=== PATIENT | female | born 1940 | race Two or more races ===

== ENCOUNTER 2022-12-07 11:58 | Emergency (ER) | payer MEDICARE, SELFPAY ==
[2022-12-07 12:05] VITALS: BP 182/108; PULSE 117; RESP 18; TEMP 36.5; O2SAT 98; BMI 21.4
--- NOTE | 2022-12-07 12:26 | ED_ITS ---
HPI - General Adult General Chief complaint: Skin/Abscess/Foreign Body Stated complaint: LOWER EXTREMITY PAIN RIGHT SIDE Time Seen by Provider: 12/07/22 12:14 History of Present Illness HPI narrative: patient diagnosed with shingles about 18 days ago. She was started on acyclovir five times per day for one week. She completed the prescription and still has pain from the right buttock down the right thigh. She has a scabbed rash. She has not seen her PCP in four years so when she called to be seen, she was told that they could not see her. No fever or chills. She also told me that she had some constipation a few days ago so she took ex- lax and then had a large BM this morning. She wanted to know if it was normal to only have small amounts out since then. Related Data Previous Rx's Medication Instructions Recorded gabapentin 300 mg capsule 300 mg PO TID #30 caps 12/07/22 (Neurontin) Allergies Allergy/AdvReac Type Severity Reaction Status Date / Time No Known Drug Allergies Allergy Verified 12/07/22 12:04 Exam Narrative Exam Narrative: Nurses notes and vital signs reviewed and patient is not hypoxic. afebrile General: Well-appearing and in no apparent distress. Skin: Warm, dry, no pallor noted. scabbed rash on right buttock and along the anterolateral right thigh. right pelvis is spared anteriorly Head: Normocephalic, atraumatic. Eye: Pupils are equal, round and EOMI. No scleral icterus. Ears, Nose, Mouth, and Throat: Oral mucosa is moist Cardiovascular: Regular Rate and Rhythm without murmur, gallop or rub. Respiratory: No accessory muscle use or respiratory distress. Lungs are clear to auscultation, no wheezing, rales or rhonchi Back: No midline thoracic or lumbar vertebral tenderness. No CVA tenderness Musculoskeletal: normal ROM. right anterolateral thigh rash as noted above GI: Abdomen is soft, non-distended. Normal bowel sounds. No tenderness to palpation. No rebound, guarding, or rigidity noted. Neurological: A&O x4. No cranial nerve dysfunction observed. No truncal ataxia. Moves all extremities. Sensation intact. Psychiatric: Cooperative and interactive. Normal mood and affect. Constitutional Vital Signs - 24 hr 12/07/22 12:05 Temperature 97.7 F Pulse Rate [Monitor] 117 H Respiratory Rate 18 Blood Pressure [Left Arm] 182/108 H Pulse Oximetry 98 Oxygen Delivery Method Room Air Course Vital Signs Vital signs: Vital Signs Temperature 97.7 F 12/07/22 12:05 Pulse Rate 117 H 12/07/22 12:05 Respiratory Rate 18 12/07/22 12:05 Blood Pressure 182/108 H 12/07/22 12:05 Pulse Oximetry 98 12/07/22 12:05 Oxygen Delivery Method Room Air 12/07/22 12:05 Temperature 97.7 F 12/07/22 12:05 Pulse Rate 117 H 12/07/22 12:05 Respiratory Rate 18 12/07/22 12:05 Blood Pressure 182/108 H 12/07/22 12:05 Pulse Oximetry 98 12/07/22 12:05 Oxygen Delivery Method Room Air 12/07/22 12:05 Medical Decision Making MDM Narrative Medical decision making narrative: Patient has post-herpetic neuralgia. I prescribed neurontin for her to take at home. We also discussed the patient's GI symptoms. No blood in stool. No abdominal pain, nausea or vomiting. Exam unremarkable. She was given reassurance and we discussed increased water intake, use of metamucil OTC for the next 6-7 days. SHe needs to see her PCP - we also gave her a list of providers taking new patients. Discharge Plan Discharge Chief Complaint: Skin/Abscess/Foreign Body Clinical Impression: Neuropathy, Herpes zoster Patient Disposition: Home, Self-Care Time of Disposition Decision: 12:21 Prescriptions / Home Meds: New gabapentin [Neurontin] 300 mg capsule 300 mg PO TID Qty: 30 0RF Rx Instructions: 1 tab on day one, 1 tab BID on day two then take TID Instructions: Shingles (ED) Stand Alone Forms: Portal Instructions Referrals: CHENG PATRICK [Primary Care Provider] - 1 week
== END 2022-12-07 12:35 | disposition home or self-care (01) ==
PROVIDERS: Emergency Provider Emergency Medicine; PCP Family Medicine
DX: B02.23 Postherpetic polyneuropathy (principal)
CPT/HCPCS: 99282